=== PATIENT | male | born 1975 | race Caucasian/White ===

== ENCOUNTER → 2022-03-26 13:39 | Outpatient (CLI) | payer OTHER, SELFPAY ==
--- NOTE | ~2022-03-26 | XR_ITS ---
[id number] 03/26/2022 14:17 INDICATION: Left foot pain PROCEDURE: 4 views left foot COMPARISON: No prior studies for comparison. FINDINGS: Fracture, dislocation or subluxation is not identified. There is mild diffuse soft tissue s welling. There is mild osteoarthritis of the midfoot. Lisfranc joint intact. No foreign bodies are i dentified. IMPRESSION: 1: NO ACUTE BONE OR JOINT ABNORMALITY IDENTIFIED. Reviewed, dictated and finalized at location A.
--- NOTE | ~2022-03-26 | XR_ITS ---
EXAM: XR ankle LT min 3V HISTORY: Pain, Bruising, Swelling . COMPARISON: None available. FINDINGS: Normal mineralization. No fracture or dislocation. No lytic or blastic lesion. Joint space s are maintained. Osseous excrescence along the superior margin of the talar neck, may contribute to impingement. No erosion or periosteal change. Opacification of the anterior joint recess, otherwise t he soft tissues within normal limits. IMPRESSION: No acute osseous finding in the left ankle. Possible chronic anterior impingement. Reviewed, dictated and finalized at location K. IMPRESSION: No acute osseous finding in the left ankle. Possible chronic anteri or impingement.
== END ==
PROVIDERS: PCP Nurse Practitioner; Visit Provider Nurse Practitioner
DX: S99.922A Unspecified injury of left foot, initial encounter (principal); M79.89 Other specified soft tissue disorders; M19.072 Primary osteoarthritis, left ankle and foot
CPT/HCPCS: 73610; 73630